=== PATIENT | female | born 1990 | race American Indian/Alaskan Native ===

== ENCOUNTER 2021-12-03 18:51 | Emergency (ER) | payer SELFPAY ==
[2021-12-03] MEDS ORDERED: ONDANSETRON 4 MG/2 ML INJ IV ONE (18:54)
[2021-12-03] MEDS ORDERED: SODIUM CHLORIDE 0.9% 1000 ML 1,000 ML IV ONE (18:54)
[2021-12-03] MEDS ORDERED: MORPHINE 4 MG/1 ML INJ IV ONE (18:54)
--- NOTE | 2021-12-03 18:58 | Emergency Department Report ---
ED General Adult HPI - General Stated complaint: N/V DIZZINESS Time Seen by Provider: 12/03/21 18:54 Source: patient - History of Present Illness Initial comments: Patient is 31 years old female with history of complex migraine and paroxysmal SVT. 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 Patient stated that all of a sudden she started to feeling dizzy and started having nausea and vomiting. Patient stated that when she started her shift today she has headache and she took Excedrin Migraine with no significant improvement. Patient denied any focal weakness, numbness or tingling sensation. No neck pain. Patient also de nied any chest pain or shortness of breath. No abdominal pain. No fever or chills. - Related Data Home Medications Medication Instructions Recorded Confirmed Last Taken Butalb/Acetamin/Caff 50-325-40 1 tab PO Q6HR PRN 09/29/15 09/29/15 09/27/15 15:00 [Fioricet] Rizatriptan Benzoate [Rizatriptan] 10 mg PO Q8H PRN 09/29/15 09/29/15 Unknown Previous Rx's Medication Instructions Recorded Last Taken Type Acetaminophen/Codeine [Tylenol #3] 1 tab PO Q6H PRN #15 tab 09/29/15 Unknown Rx Cyclobenzaprine [Flexeril 10 MG 5 mg PO TID PRN #12 tablet 09/29/15 Unknown Rx TAB] Ibuprofen [Motrin 800 MG tab] 800 mg PO Q8HR PRN #30 tablet 09/29/15 Unknown Rx Allergies Allergy/AdvReac Type Severity Reaction Status Date / Time No Known Allergies Allergy Unverified 09/29/15 08:34 ED Review of Systems ROS: Stated complaint: N/V DIZZINESS Other details as noted in HPI Comment: All other systems reviewed and negative Constitutional: denies: chills, fever Respiratory: denies: cough, shortness of breath, SOB with exertion, SOB at rest Cardiovascular: denies: chest pain, palpitations Gastrointestinal: nausea, vomiting. denies: abdominal pain, diarrhea, constipation, hematemesis, melena Genitourinary: denies: urgency, dysuria, frequency, hematuria Musculoskeletal: denies: back pain Neurological: headache. denies: weakness, numbness, paresthesias, confusion, abnormal gait ED Past Medical Hx - Past Medical History Hx Headaches / Migraines: Yes - Social History Smoking Status: Never Smoker Substance Use Type: None - Medications Home Medications: Home Medications Medication Instructions Recorded Confirmed Last Taken Type Acetaminophen/Codeine [Tylenol #3] 1 tab PO Q6H PRN #15 tab 09/29/15 Unknown Rx Butalb/Acetamin/Caff 50-325-40 1 tab PO Q6HR PRN 09/29/15 09/29/15 09/27/15 15:00 History [Fioricet] Cyclobenzaprine [Flexeril 10 MG 5 mg PO TID PRN #12 tablet 09/29/15 Unknown Rx TAB] Ibuprofen [Motrin 800 MG tab] 800 mg PO Q8HR PRN #30 tablet 09/29/15 Unknown Rx Rizatriptan Benzoate [Rizatriptan] 10 mg PO Q8H PRN 09/29/15 09/29/15 Unknown History ED Physical Exam - General General appearance: alert, other (Actively vomiting in the ER.) - Head Head exam: Present: atraumatic, normocephalic, normal inspection - Eye Eye exam: Present: normal appearance - ENT ENT exam: Present: normal exam, normal orophraynx, mucous membranes moist - Neck Neck exam: Present: normal inspection, full ROM. Absent: tenderness, meningismus - Respiratory Respiratory exam: Present: normal lung sounds bilaterally - Cardiovascular Cardiovascular Exam: Present: regular rate, normal rhythm, normal heart sounds - GI/Abdominal GI/Abdominal exam: Present: soft, normal bowel sounds. Absent: distended, tenderness, guarding, rebound, rigid, organomegaly, mass, bruit, pulsatile mass, hernia - Extremities Exam Extremities exam: Present: normal inspection, full ROM, normal capillary refill. Absent: tenderness, pedal edema, joint swelling, calf tenderness - Back Exam Back exam: Present: normal inspection, full ROM. Absent: CVA tenderness (R), CVA tenderness (L) - Neurological Exam Neurological exam: Present: alert, oriented X3, CN II-XII intact, normal gait, reflexes normal. Absent: motor sensory deficit - Psychiatric Psychiatric exam: Present: normal mood - Skin Skin exam: Present: warm, dry, intact, normal color ED Medical Decision Making - Lab Data Result diagrams: 12/03/21 19:10 12/03/21 19:10 - Radiology Data Radiology results: report reviewed - Medical Decision Making Patient is 31 years old female with history of complex migraine and paroxysmal SVT. 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 Patient stated that all of a sudden she started to feeling dizzy and started having nausea and vomiting. Patient stated that when she started her shift today she has headache and she took Excedrin Migraine with no significant improvement. Patient denied any focal weakness, numbness or tingling sensation. No neck pain. Patient also denied any chest pain or shortness of breath. No abdominal pain. No fever or chills. Patient received morphine, Zofran, Reglan and normal saline. Patient stated that she is feeling much better. Labs reviewed and is unremarkable. CT brain is negative for acute finding. Patient symptoms most likely related to her complex migraine. Patient advised to follow-up with her primary doctor in the next 2 to 3 days and to return to the ER if she develop any new symptoms. Critical care attestation.: If time is entered above; I have spent that time in minutes in the direct care of this critically ill patient, excluding procedure time. ED Disposition Clinical Impression: Acute headache, Dizziness, Acute nausea with nonbilious vomiting Disposition: 01 HOME / SELF CARE / HOMELESS Is pt being admited?: No Condition: Stable Instructions: Nausea and Vomiting, Adult, Dizziness, [id number], Migraine Headache, [id number] Referrals: VIET ADEN MD [Primary Care Provider] - 3-5 Days
[2021-12-03 19:20] LABS: Basophils # (Auto) 0.1 K/mm3 (0.0-0.1); Basophils % (Auto) 1.9 % (0.0-1.8); Eosinophils # (Auto) 0.2 K/mm3 (0.0-0.4); Eosinophils % (Auto) 3.7 % (0.0-4.3); Hematocrit 35.2 % (30.3-42.9); Hemoglobin 12.1 gm/dl (10.1-14.3); Lymphocytes # (Auto) 1.7 K/mm3 (1.2-5.4); Lymphocytes % (Auto) 28.3 % (13.4-35.0); Mean Corpuscular HGB Conc 34 % (30-34); Mean Corpuscular Volume 93 fl (79-97); Monocytes # (Auto) 0.5 K/mm3 (0.0-0.8); Monocytes % (Auto) 7.6 % (0.0-7.3); Platelet Count 261 K/mm3 (140-440); Red Blood Count 3.78 M/mm3 (3.65-5.03); Red Cell Distribution Width 13.7 % (13.2-15.2)
[2021-12-03 20:09] LABS: BUN/Creatinine Ratio 15; Blood Urea Nitrogen 15 mg/dL (7-17); Calcium 9.6 mg/dL (8.4-10.2); Hemolysis Index 3
[2021-12-03 20:12] LABS: Alanine Aminotransferase 7 units/L (7-56); Albumin 4.3 g/dL (3.9-5)
[2021-12-03 20:16] LABS: Bilirubin,Direct < 0.2 mg/dL (0-0.2)
[2021-12-03] MEDS ORDERED: MECLIZINE 25 MG TAB PO ONE (20:36)
[2021-12-03] MEDS ORDERED: METOCLOPRAMIDE 10 MG/2 ML INJ IV ONE (20:47)
--- NOTE | 2021-12-03 21:06 | Cat Scan Report ---
CT head/brain wo con INDICATION: DIZZINESS. TECHNIQUE: Routine CT head without contrast. All CT scans at this location are performed using CT dos e reduction for ALARA by means of automated exposure control. COMPARISON: None. FINDINGS: BRAIN / INTRACRANIAL CONTENTS: No acute hemorrhage, mass effect, midline shift, or hydrocephalus. No appreciable acute large territorial or lacunar infarct. No chronic infarct or focal atrophy. Normal b rain volume and ventricular/sulcal size for age. ORBITS: No significant abnormality of visualized orbits. SINUSES / MASTOIDS: No significant abnormality of visualized sinuses and mastoid air cells. ADDITIONAL FINDINGS: None. IMPRESSION: 1. No acute intracranial abnormality. Signer Name: Cesario Valverde MD Signed: 12/03/2021 9:01 PM Workstation Name: [id number]
--- NOTE | 2021-12-06 09:57 | Electrocardiograph Report ---
[facility] Test Date: 2021-12-03 Test Time: 18:49:23 Pat Name: SHIRIN MINER Department: Room: Gender: F Principal Web Developer: [email or web address] : 1990 Requested By: RIO KIRAN Order Number: [id number] Reading MD: Jett Hyman Measurements Intervals [place] Rate: 71 P: 49 GA: 238 QRS: 27 QRSD: 76 T: 20 QT: 378 QTc: 412 Interpretive Statements Sinus rhythm Prolonged GA interval Probable left atrial enlargement Anteroseptal infarct, age indeterminate No previous ECG available for comparison Electronically Signed On 12-06-2021 9:57:00 EDT by Jett yHman
== END 2021-12-03 21:59 | disposition home or self-care (01) ==
LOC: ED 18:51
DX: R51.9 Headache, unspecified (principal); R42 Dizziness and giddiness; R11.2 Nausea with vomiting, unspecified
CPT/HCPCS: 36415; 70450; 80048; 80076; 83690; 84484; 84703; 85025; 93005; 96361; 96374; 96375; 99284; J2270; J2405; J2765; J7030